=== PATIENT | female | born 1960 | race African-American/Black ===

== ENCOUNTER 2022-05-06 10:18 | Outpatient (REF) | payer OTHER, SELFPAY ==
[2022-05-06 10:46] LABS: MANUAL DIFF FLAG NO
[2022-05-06 10:50] LABS: Basophils Percent Auto 0.4 % (0-2); Eosinophils Absolute Auto 0.3 X10*3/uL (0.0-0.4); Eosinophils Percent Auto 3.1 % (0-4); Hematocrit 43.6 % (37.0-47.0); Hemoglobin 14.3 g/dl (12.0-16.0); Imm Gran Abs Auto 0.03 X10*3/uL (0.00-0.03); Imm Gran Pct Auto 0.3 % (0.0-0.4); Lymphocytes Absolute Auto 3.5 X10*3/uL (1.2-4.9); Mean Corpuscular HGB Conc 32.8 g/dl (31.0-35.0); Mean Corpuscular Hemoglobin 29.2 pg (27.0-33.0); Mean Platelet Volume 10.7 fL (9.4-12.3); Monocytes Absolute Auto 0.5 X10*3/uL (0.1-1.2); Neutrophils Absolute Auto 5.6 x10*3/uL (2.0-8.3); Neutrophils Percent Auto 56.2 % (45-73); Platelet Count 309 X10*3/uL (160-400); Red Cell Distribution Width 13.6 % (11.0-16.0)
[2022-05-06 11:25] LABS: Estimated Glomerular Filt Rate 59
[2022-05-06 11:33] LABS: Erythrocyte Sedimentation Rate 23 MM/HR (0-20)
[2022-05-06 14:20] LABS: Creatinine Urine 201.18 mg/dL; Protein/Creatinine Ratio, Ur 0.08 (<0.2); Total Protein Urine Random 17 mg/dL (<12)
[2022-05-11 07:18] LABS: Antibody to SS-A Antigen <1.0 NEG AI (<1.0 NEG); Antibody to SS-B Antigen 1.4 POS AI (<1.0 NEG)
== END 2022-05-06 10:19 | disposition home or self-care (01) ==
LOC: HO.10HDL 10:18
PROVIDERS: Visit Provider Internal Medicine Rheumatology
DX: R76.8 Other specified abnormal immunological findings in serum (principal); M79.10 Myalgia, unspecified site
CPT/HCPCS: 36415; 82550; 82565; 84156; 85025; 85652; 86140; 86235